=== PATIENT | female | born 1985 | race Caucasian/White ===

== ENCOUNTER → 2024-03-21 06:49 | Outpatient (REF) | payer OTHER, SELFPAY | LOC: PNTC 06:49 | PROVIDERS: ATTENDING PHYSICIAN Advanced Practice Midwife | DX: Z36.0 Encounter for antenatal screening for chromosomal anomalies (principal); Z36.82 Encounter for antenatal screening for nuchal translucency | CPT/HCPCS: 36415; 76801; 76813 ==

== ENCOUNTER → 2024-05-16 10:43 | Outpatient (REF) | payer OTHER, SELFPAY | LOC: PNTC 10:43 | PROVIDERS: ATTENDING PHYSICIAN Advanced Practice Midwife | DX: O09.519 Supervision of elderly primigravida, unspecified trimester (principal) | CPT/HCPCS: 76811 ==

== ENCOUNTER 2024-06-03 06:24 | Outpatient (RCR) | payer OTHER, SELFPAY | END 2024-06-03 23:59 | disposition home or self-care (01) | LOC: RPT 06:24 | PROVIDERS: ATTENDING PHYSICIAN Advanced Practice Midwife | DX: N39.3 Stress incontinence (female) (male) (principal); Z73.6 Limitation of activities due to disability; O26.892 Other specified pregnancy related conditions, second trimester; Z3A.23 23 weeks gestation of pregnancy; O21.9 Vomiting of pregnancy, unspecified | CPT/HCPCS: 97161; 97530 ==

== ENCOUNTER → 2024-07-09 07:00 | Outpatient (REF) | payer OTHER, SELFPAY | LOC: PNTC 07:00 | PROVIDERS: ATTENDING PHYSICIAN Advanced Practice Midwife | DX: O09.529 Supervision of elderly multigravida, unspecified trimester (principal) | CPT/HCPCS: 76816 ==

== ENCOUNTER 2024-08-17 17:56 | Emergency (ER) | payer OTHER, SELFPAY ==
[2024-08-17 18:05] VITALS: BP 125/67
--- NOTE | 2024-08-17 20:36 | ED.GENMED ---
History of Present Illness
General
Chief Complaint: Breathing Problem
Source: patient
Exam Limitations: none
Time Seen by Provider: 08/17/24 19:54
Nursing documentation reviewed up to this point in time: agreed with
History of Present Illness
History of Present Illness:
Patient is a 38year-old female approximate 33 weeks due September 30 sent by LEAN MANAGER for evaluation. Patient has a history of iron deficiency anemia and was scheduled for an iron transfusion August 30. She did start oral iron this week. She felt
little bit of increased fatigue and shortness of breath today and felt decreased movemen. She was sent by LEAN MANAGER and had a ultrasound. This was evaluated by LEAN MANAGER patient was cleared from the OB standpoint.
She denies any abdominal pain and vaginal bleeding.
On my exam she actually reports she is feeling better she thinks just resting her symptoms have improved. She does have 4 little kids at home.
Review of Systems
Review of Systems
Allergies reviewed?: Yes
All Other Systems: ROS reviewed and negative except as documented in HPI and ROS
Constitutional: Reports no symptoms; Denies fever, fatigue or chills
Respiratory: Reports trouble breathing
Cardiac: Reports no symptoms; Denies palpitations
ABD/GI: Reports no symptoms; Denies abdominal pain
: Denies bleeding
Musculoskeletal: Reports no symptoms
Skin: Reports no symptoms
Neurological: Reports no symptoms
Psychiatric: Reports no symptoms
Phy Exam
General Physical Exam
General Presentation: no apparent distress
General age: appears stated age
General Skin: warm and dry
General Habitus: normal
General Mental: alert
General Hydration: appears well hydrated
Cardiovascular Exam
Cardiovascular Exam: regular rate/rhythm, no murmur and normal peripheral pulses
Pulmonary Exam
Pulmonary Exam: lungs clear and no respiratory distress
Gastrointestinal Exam
Gastrointestinal Exam: non tender and soft
Neurological Exam
Neurological Exam: alert and oriented x3
Musculoskeletal Exam
Musculoskeletal Exam: full ROM
Skin Exam
Skin Exam: normal color and warm/dry
Psychiatric Exam
Psychiatric Exam: normal mood/affect
Course
Orders/Labs/Results
Orders:
Orders
08/17/24 18:18
Electrocardiogram (*1) Urgent
Reason for Study: Shortness of Breath
08/17/24 18:19
EKG- Treatment ONCE
08/17/24 19:01
Biophysical Profile US [US Preg Biophysical Profile] Routine
Comment:
Reason For Exam: decreased movement, 33 weeks
08/17/24 20:40
Non-Stress Test- LDRP As Directed
Frequency: Once
08/17/24 21:11
Complete Blood Count/With Diff Urgent
Comprehensive Metabolic Panel Urgent
Abnormal Lab Results
08/17/24
21:11
RBC 3.40 L 10^6/uL
(4.20-5.40)
Hgb 8.8 L g/dL
(12.0-16.0)
Hct 26.7 L %
(37.0-47.0)
MCV 78.5 L fL
(81.0-99.0)
MCH 25.9 L pg
(27.0-31.0)
Immature Gran % 0.6 H %
(0-0.5)
Chloride 112 H mmol/L
(98-107)
Carbon Dioxide 20 L mmol/L
(22-30)
Creatinine 0.5 L mg/dL
(0.6-1.0)
08/17/24 21:11
08/17/24 21:11
Vital Signs
Initial and Last Documented VS:
Initial Vital Signs
Temp Pulse Resp BP Pulse Ox
98.5 F 97 18 125/67 100
08/17/24 18:05 08/17/24 18:05 08/17/24 18:05 08/17/24 18:05 08/17/24 18:05
Last Documented Vital Signs
Temp Pulse Resp BP Pulse Ox
98.5 F 80 12 111/78 100
08/17/24 18:05 08/17/24 20:45 08/17/24 20:45 08/17/24 20:40 08/17/24 20:45
Liquefier consulted with Physician
Liquefier consulted with physician?: Yes (Jose Luis )
MDM/Problems Addressed
MDM/Problems Addressed:
As documented patient is a 38-year-old female approximate 33 weeks sent by OB for evaluation
Patient has a history of anemia and has been having some shortness of breath with exertion. Today she thought she had some diminished movements which is what prompted her to call her LEAN MANAGER. Patient had ultrasound which was read as normal
by DR Allen .
I did check patient's hemoglobin which is 8.8. She is scheduled to have an iron transfusion August 30 that is being followed by her freight and passenger agent Yaima Lee for this. She is on oral iron. Likely the cause of patient's shortness of breath. I did review
this with OB on-call Dr. Allen 9pt usually lives in the 9s ).
she does however feel better at rest here in the ER. She has no acute distress nontachycardic nontachypneic nonhypoxic. Case reviewed with Dr. Amaya will DC home with outpatient followed by her OBGYN
*Critical Care Note
Total Time (30-74mins, 75-104mins- exclusive of procedures): Not Applicable
ED Attending Note
-
Portions of this chart may have been created with voice recognition software.� Occasional wrong word or��sound alike� substitutions may have occurred due to the inherent limitations of voice recognition software.
Discharge Plan
Departure
Patient Disposition: Home (Routine Discharge)
Date of Disposition: 08/17/24
Time of Disposition: 22:20
Patient with high blood pressure during this ER visit?: No
Condition: Fair
Covid-19: Not Applicable
Discharge Problem:
Dyspnea, Anemia
Prescriptions:
No Action
PNV cmb#95-ferrous fumarate-FA [] 1 EACH tablet
1 ea PO DAILY
acetaminophen 325 mg Tablet
650 mg PO Q4HPRN PRN (Reason: mild pain) Qty: 0 0RF
ibuprofen 600 mg Tablet
600 mg PO Q6HPRN PRN (Reason: moderate pain/cramps) Qty: 0 0RF
Referrals:
NONE,* [Family Provider, Internal Medicine]
Activity Restrictions/Additional Instructions:
As discussed your hemoglobin was low at 8.8. Please call your LEAN MANAGER and follow-up closely with them in the next several days.
Interventions
Interventions:
*Risk Screen - Suicide Last Done: 08/17/24 18:05
*General Assessment Last Done: 08/17/24 18:05
*Neglect/Abuse Screening Last Done: 08/17/24 18:05
*ED- Fall Risk Assessment Last Done: 08/17/24 18:05
*ED COVID-19 Vaccine History Last Done: 08/17/24 18:05
ED- Cardiac Assessment Last Done: 08/17/24 18:30
ED- Pulmonary Assessment Last Done: 08/17/24 18:30
Discharge Date and Time
Print Language: [id number]
[2024-08-17 20:40] VITALS: BP 111/78
[2024-08-17 21:16] LABS: % Basophils 0.6 % (0-2); % Immature Granulocytes 0.6 % (0-0.5); % Lymphocytes 24.2 % (20.5-51.1); % Monocytes 8.1 % (1.7-9.3); % Neutrophils 66.5 % (42.2-75.2); Absolute Lymphocytes 1.6 10^3/uL (1.2-3.4); Absolute Monocytes 0.5 10^3/uL (0.1-0.6); Absolute Neutrophils 4.4 10^3/uL (1.4-6.5); Hematocrit 26.7 % (37.0-47.0); Hemoglobin 8.8 g/dL (12.0-16.0); Mean Corpuscular Hgb 25.9 pg (27.0-31.0); Mean Corpuscular Volume 78.5 fL (81.0-99.0); Mean Platelet Volume 10.3 fL (7.4-10.4); Nucleated Red Blood Cells % 0 %; Platelet Count 186 10^3/uL (130-400); Red Cell Dist. Width 13.7 % (11.5-14.5); White Blood Cell Count 6.6 10^3/uL (4.8-10.8)
[2024-08-17 21:38] LABS: ALT (SGPT) 26 U/L (0-35); AST (SGOT) 31 U/L (14-36); Albumin 3.6 g/dl (3.5-5.0); Alkaline Phosphatase 109 U/L (38-126); Blood Urea Nitrogen 7 mg/dl (7-17); Calcium 8.5 mg/dl (8.4-10.2); Carbon Dioxide 20 mmol/L (22-30); Chloride 112 mmol/L (98-107); Glucose 88 mg/dl (70-99); Potassium 3.9 mmol/L (3.5-5.1); Sodium 136 mmol/L (135-145); Total Bilirubin 0.5 mg/dl (0.2-1.3); Total Protein 6.8 g/dl (6.3-8.2); eGFR > 60.00
[2024-08-17 22:00] VITALS: BP 107/70
== END 2024-08-17 22:26 | disposition home or self-care (01) ==
LOC: EMR 17:56
PROVIDERS: Nurse Practitioner; EMERGENCY PHYSICIAN Student in an Organized Health Care Education/Training Program
DX: O99.891 Other specified diseases and conditions complicating pregnancy (principal); R06.00 Dyspnea, unspecified; O99.013 Anemia complicating pregnancy, third trimester; O36.8130 Decreased fetal movements, third trimester, not applicable or unspecified; O09.523 Supervision of elderly multigravida, third trimester; Z3A.33 33 weeks gestation of pregnancy
CPT/HCPCS: 99284; 76819; 80053; 85025; 93005

== ENCOUNTER → 2024-08-27 06:47 | Outpatient (REF) | payer OTHER, SELFPAY | LOC: PNTC 06:47 | PROVIDERS: ATTENDING PHYSICIAN Advanced Practice Midwife | DX: Z36.0 Encounter for antenatal screening for chromosomal anomalies (principal) | CPT/HCPCS: 76816 ==

== ENCOUNTER 2024-09-16 18:27 | Inpatient (IN) | payer OTHER, SELFPAY ==
[2024-09-16 18:37] VITALS: BP 106/63; BMI 24.6
[2024-09-16 19:22] LABS: Hematocrit 31.5 % (37.0-47.0); Hemoglobin 10.2 g/dL (12.0-16.0); Mean Corp Hgb Conc. 32.4 g/dL (33.0-37.0); Mean Corpuscular Volume 83.1 fL (81.0-99.0); Platelet Count 187 10^3/uL (130-400); Red Cell Dist. Width 18.9 % (11.5-14.5)
[2024-09-16] MEDS: LR 1000 IV (22:47)
[2024-09-16] MEDS: SUBLIMAZE 100 MCG EPIDURAL (22:59)
[2024-09-16] MEDS: FENTANYL/BUPIVACAINE 100 EPIDURAL (22:59)
[2024-09-17] MEDS: COLACE 100 MG PO ×2 (08:18→19:57)
[2024-09-17] MEDS: MOTRIN 600 MG PO (21:40)
[2024-09-18 04:18] LABS: Hematocrit 26.9 % (37.0-47.0); Hemoglobin 8.8 g/dL (12.0-16.0)
[2024-09-18] MEDS: COLACE 100 MG PO (07:58)
[2024-09-18] MEDS: MOTRIN 600 MG PO (07:58)
== END 2024-09-18 11:00 | disposition home or self-care (01) | DRG 807 ==
LOC: LDRP 18:27
PROVIDERS: ADMITTING PHYSICIAN Advanced Practice Midwife
PROC: 10907ZC Drainage of Amniotic Fluid, Therapeutic from Products of Conception, Via Natural or Artificial Opening (ICD-10-PCS; 2024-09-16)
PROC: 10E0XZZ Delivery of Products of Conception, External Approach (ICD-10-PCS; 2024-09-17)
DX: O69.1XX0 Labor and delivery complicated by cord around neck, with compression, not applicable or unspecified (principal); Z37.0 Single live birth; Z3A.38 38 weeks gestation of pregnancy
CPT/HCPCS: 85014; 85018; 85027; 86780; 86850; 86900; 86901